=== PATIENT | female | born 1980 | race Caucasian/White ===

== ENCOUNTER 2024-02-13 07:29 | Outpatient (CLI) | payer OTHER, SELFPAY ==
--- NOTE | 2024-02-13 08:22 | W.ANESCHARGE ---
Anesthesia Charges Start Date/Time Anesthesia Start Date: 02/13/24 Anesthesia Start Time: 08:42 Stop Date/Time Anesthesia Stop Date: 02/13/24 Anesthesia Stop Time: 09:16
[2024-02-13 08:48] LABS: Ur HCG Qualitative* Negative (Negative)
--- NOTE | 2024-02-13 09:18 | W.ANESCHARGE ---
Anesthesia Charges Start Date/Time Anesthesia Start Date: 02/13/24 Anesthesia Start Time: 08:42 Stop Date/Time Anesthesia Stop Date: 02/13/24 Anesthesia Stop Time: 09:16
== END 2024-02-13 07:30 | disposition home or self-care (01) ==
LOC: OP CLINIC 07:31
PROVIDERS: PCP Family Medicine; Visit Provider Internal Medicine Gastroenterology
DX: R19.7 Diarrhea, unspecified (principal); K21.00 Gastro-esophageal reflux disease with esophagitis, without bleeding; K25.9 Gastric ulcer, unspecified as acute or chronic, without hemorrhage or perforation
CPT/HCPCS: 00813; 43239; 45380; 81025; 88305; J2704; J3490